=== PATIENT | female | born 1960 | race Caucasian/White ===

== ENCOUNTER 2019-10-27 08:22 | Inpatient (IN) | payer MEDICAID ==
[~2019-10-27] VITALS: Ht 165.1 cm; Wt 51.3 kg
[2019-10-27] MEDS ORDERED: SODIUM CHLORIDE 0.9% 1,000 ML IV ONE (08:41)
[2019-10-27] MEDS ORDERED: MORPHINE SULFATE 4 MG/ML CPJ (NOT FOR IM USE) IV STA (08:41)
[2019-10-27] MEDS ORDERED: ONDANSETRON HCL 4MG/2ML INJ IV STA (08:41)
[2019-10-27 09:35] LABS: CHLORIDE 104 mEq/L (98-107)
[2019-10-27 09:39] LABS: ETHANOL BLOOD < 10 mg/dL; INR 1.1; MEAN CORPUSCULAR HEMOGLOBIN 31.8 pg (28.0-32.0); MEAN CORPUSCULAR VOLUME 90.5 fL (81.0-99.0); MEAN PLATELET VOLUME 7.1 fl (7.4-10.4); PLATELET 459 x1000/uL (130-400); PROTHROMBIN TIME 11.9 sec (9.6-11.0); RED BLOOD CELL COUNT 1.99 mill/uL (4.2-5.4); RED CELL DISTRIBUTION WIDTH 13.5 % (11.6-14.6)
[2019-10-27 09:42] LABS: HEMOGLOBIN. 6.3 g/dL (12.0-16.0)
[2019-10-27] MEDS ORDERED: LORAZEPAM 2MG/ML CPJ IV ONE (09:45)
[2019-10-27] MEDS ORDERED: KCL 20MEQ/100ML PREMIX 100 ML IV ONE (10:15)
[2019-10-27 10:31] LABS: PLATELET ESTIMATE INCREASED
[2019-10-27 10:35] LABS: TOTAL IRON BINDING CAPACITY 198 ug/dL (250-450)
[2019-10-27 15:00] VITALS: BP 108/68
[2019-10-27] MEDS ORDERED: ALPR2TAB2 PO (15:32)
[2019-10-27] MEDS ORDERED: METH-611 PO (15:32)
[2019-10-27] MEDS ORDERED: LORA10TA7 MT (15:32)
[2019-10-27] MEDS ORDERED: DIPHENHYDRAMINE 50MG/ML VIAL IV PRN (18:45)
[2019-10-27] MEDS ORDERED: ONDANSETRON HCL 4MG/2ML INJ IV PRN (18:45)
[2019-10-27 21:26] LABS: BASOPHILS % 0.1 % (0.0-2.0); EOSINOPHILS % 0.1 % (0.0-5.0); LYMPHOCYTES % 8.8 % (20.0-50.0); MEAN CORPUSCULAR HEMOGLOBIN 31.1 pg (28.0-32.0); MEAN CORPUSCULAR VOLUME 89.1 fL (81.0-99.0); MEAN PLATELET VOLUME 7.6 fl (7.4-10.4); MONOCYTES % 6.7 % (2.0-8.0); NEUTROPHILS % 84.3 % (40.0-76.0); PLATELET 372 x1000/uL (130-400); RED BLOOD CELL COUNT 2.03 mill/uL (4.2-5.4); RED CELL DISTRIBUTION WIDTH 13.6 % (11.6-14.6)
[2019-10-27 21:29] LABS: HEMATOCRIT. 18.1 % (36.0-48.0); HEMOGLOBIN. 6.3 g/dL (12.0-16.0)
[2019-10-27 21:32] LABS: INR 1.1; PROTHROMBIN TIME 11.6 sec (9.6-11.0)
[2019-10-27] MEDS: LORAZEPAM 2MG/ML CPJ IV PRN (21:46)
[2019-10-27] MEDS: ACETAMINOPHEN 325MG TABLET PO PRN ×2 (21:46→23:31)
[2019-10-27] MEDS: ZOLPIDEM TARTRATE 5MG TABLET PO PRN (21:47)
[2019-10-27 22:40] VITALS: BP 126/80
[2019-10-27] MEDS: PANTOPRAZOLE SODIUM 40 MG/VIAL IV SCH (23:10)
[2019-10-28] VITALS (16 sets, daily range): BP systolic 87–120; BP diastolic 59–77
[2019-10-28] MEDS: SODIUM CHLORIDE 0.9% 1,000 ML IV SCH ×3 (02:52→15:30)
[2019-10-28] MEDS: ACETAMINOPHEN 325MG TABLET PO PRN ×2 (02:57→05:39)
[2019-10-28] MEDS: PANTOPRAZOLE SODIUM 40 MG/VIAL IV SCH ×2 (05:46→18:00)
[2019-10-28] MEDS: LORAZEPAM 2MG/ML CPJ IV PRN ×2 (05:48→18:21)
[2019-10-28 08:17] LABS: CHLORIDE 107 mEq/L (98-107); PHOSPHORUS 1.7 mg/dL (2.5-4.9)
[2019-10-28] MEDS ORDERED: POTASSIUM CHLORIDE 20MEQ TABLET SR PO ONE ×2 (09:15→10:15)
[2019-10-28] MEDS: POTASSIUM CHLORIDE 20MEQ TABLET SR PO SCH ×2 (09:43→11:12)
[2019-10-28] MEDS: METHADONE HCL 10MG TABLET PO SCH (11:37)
[2019-10-28] MEDS ORDERED: POTASSIUM PHOS,M-BASIC-D-BASIC 20 MMOL in DEXT 5% WATER 243.3333 ML IV NR (12:00)
[2019-10-28] MEDS ORDERED: DIATR MEGLU/DIATRIZOATE SOLN 30ML PO NR (14:45)
[2019-10-28] MEDS ORDERED: POTASSIUM CHLORIDE 20MEQ TABLET SR PO NR ×2 (16:15→21:00)
[2019-10-28 16:20] LABS: BASOPHILS % 0.4 % (0.0-2.0); EOSINOPHILS % 0.4 % (0.0-5.0); LYMPHOCYTES % 14.5 % (20.0-50.0); MEAN CORPUSCULAR HEMOGLOBIN 32.3 pg (28.0-32.0); MEAN CORPUSCULAR VOLUME 90.3 fL (81.0-99.0); MEAN PLATELET VOLUME 7.3 fl (7.4-10.4); MONOCYTES % 9.6 % (2.0-8.0); NEUTROPHILS % 75.1 % (40.0-76.0); PLATELET 300 x1000/uL (130-400); RED BLOOD CELL COUNT 1.52 mill/uL (4.2-5.4); RED CELL DISTRIBUTION WIDTH 14.1 % (11.6-14.6)
[2019-10-28 16:25] LABS: HEMATOCRIT. 13.7 % (36.0-48.0); HEMOGLOBIN. 4.9 g/dL (12.0-16.0)
[2019-10-28 18:20] LABS: FOLIC ACID (FOLATE) SERUM 13.3 ng/mL (>5.38)
[2019-10-28 21:27] LABS: CARCINO EMBRYONIC ANTIGEN 2.2 ng/ml
[2019-10-29] VITALS (19 sets, daily range): BP systolic 84–134; BP diastolic 49–93
[2019-10-29] MEDS: SODIUM CHLORIDE 0.9% 1,000 ML IV SCH ×2 (02:01→11:16)
[2019-10-29] MEDS: ACETAMINOPHEN 325MG TABLET PO PRN ×2 (03:55→20:42)
[2019-10-29] MEDS: LORAZEPAM 2MG/ML CPJ IV PRN ×2 (03:58→17:50)
[2019-10-29] MEDS: DIATR MEGLU/DIATRIZOATE SOLN 30ML PO NR ×2 (05:28→06:20)
[2019-10-29 06:03] LABS: BASOPHILS % 0.7 % (0.0-2.0); HEMATOCRIT. 22.4 % (36.0-48.0); HEMOGLOBIN. 7.7 g/dL (12.0-16.0); LYMPHOCYTES % 21.1 % (20.0-50.0); MEAN CORPUSCULAR HEMOGLOBIN 29.9 pg (28.0-32.0); MEAN CORPUSCULAR VOLUME 86.8 fL (81.0-99.0); MEAN PLATELET VOLUME 7.2 fl (7.4-10.4); MONOCYTES % 8.7 % (2.0-8.0); NEUTROPHILS % 67.5 % (40.0-76.0); PLATELET 284 x1000/uL (130-400); RED BLOOD CELL COUNT 2.58 mill/uL (4.2-5.4); RED CELL DISTRIBUTION WIDTH 15.6 % (11.6-14.6)
[2019-10-29] MEDS: PANTOPRAZOLE SODIUM 40 MG/VIAL IV SCH ×2 (06:21→17:50)
[2019-10-29 06:27] LABS: CHLORIDE 110 mEq/L (98-107)
[2019-10-29] MEDS: METHADONE HCL 10MG TABLET PO SCH (10:24)
[2019-10-29] MEDS ORDERED: IOHEXOL-300 100 ML BOTTLE ONE (11:14)
[2019-10-29 12:43] LABS: HEMOGLOBIN 5.3 g/dL (12.0-16.0)
[2019-10-29 12:44] LABS: HEMATOCRIT 15.2 % (36.0-48.0)
[2019-10-29] MEDS ORDERED: MIDAZOLAM HCL 5 MG/5 ML VIAL IV PRN (16:32)
[2019-10-29] MEDS ORDERED: MIDAZOLAM HCL 5 MG/5 ML VIAL ONE (16:38)
[2019-10-29] MEDS: SUCRALFATE 1G TABLET PO SCH (18:48)
[2019-10-29 21:24] LABS: HEMATOCRIT 27.2 % (36.0-48.0)
[2019-10-29 21:27] LABS: HEMOGLOBIN 9.2 g/dL (12.0-16.0)
[2019-10-30] VITALS (22 sets, daily range): BP systolic 99–144; BP diastolic 58–82
[2019-10-30] MEDS: SUCRALFATE 1G TABLET PO SCH ×4 (00:28→17:19)
[2019-10-30 00:55] LABS: HEMATOCRIT 24.1 % (36.0-48.0); HEMOGLOBIN 8.3 g/dL (12.0-16.0)
[2019-10-30] MEDS: SODIUM CHLORIDE 0.9% 1,000 ML IV SCH ×3 (04:00→16:46)
[2019-10-30] MEDS: ACETAMINOPHEN 325MG TABLET PO PRN ×3 (04:15→19:23)
[2019-10-30 05:21] LABS: HEMATOCRIT 24.3 % (36.0-48.0); HEMOGLOBIN 8.5 g/dL (12.0-16.0)
[2019-10-30] MEDS: PANTOPRAZOLE SODIUM 40 MG/VIAL IV SCH ×2 (06:23→17:19)
[2019-10-30] MEDS: FERROUS SULFATE 325MG TABLET PO SCH ×3 (08:28→17:20)
[2019-10-30] MEDS: METHADONE HCL 10MG TABLET PO SCH (09:13)
[2019-10-30] MEDS: ZOLPIDEM TARTRATE 5MG TABLET PO PRN (20:15)
[2019-10-31] VITALS (16 sets, daily range): BP systolic 116–150; BP diastolic 75–100
[2019-10-31] MEDS: ACETAMINOPHEN 325MG TABLET PO PRN ×2 (01:39→07:33)
[2019-10-31] MEDS: SUCRALFATE 1G TABLET PO SCH ×5 (01:40→23:38)
[2019-10-31] MEDS: SODIUM CHLORIDE 0.9% 1,000 ML IV SCH ×3 (01:40→23:36)
[2019-10-31] MEDS: PANTOPRAZOLE SODIUM 40 MG/VIAL IV SCH (05:11)
[2019-10-31] MEDS: LORAZEPAM 2MG/ML CPJ IV PRN (07:33)
[2019-10-31] MEDS: METHADONE HCL 10MG TABLET PO SCH (09:48)
[2019-10-31] MEDS: FERROUS SULFATE 325MG TABLET PO SCH ×3 (12:20→18:10)
[2019-10-31] MEDS: HYDROCODONE/ACETAMINOPHEN 5/325MG TABLET PO PRN ×3 (14:50→23:27)
[2019-10-31] MEDS: LORAZEPAM 1MG TABLET PO PRN (15:31)
[2019-10-31 15:55] LABS: BASOPHILS % 0.3 % (0.0-2.0); EOSINOPHILS % 0.6 % (0.0-5.0); LYMPHOCYTES % 15.4 % (20.0-50.0); MEAN CORPUSCULAR HEMOGLOBIN 31.2 pg (28.0-32.0); MEAN CORPUSCULAR VOLUME 93.8 fL (81.0-99.0); MEAN PLATELET VOLUME 7.1 fl (7.4-10.4); MONOCYTES % 6.1 % (2.0-8.0); NEUTROPHILS % 77.6 % (40.0-76.0); PLATELET 349 x1000/uL (130-400); RED BLOOD CELL COUNT 2.16 mill/uL (4.2-5.4)
[2019-10-31 16:01] LABS: CHLORIDE 107 mEq/L (98-107)
[2019-10-31 16:06] LABS: PHOSPHORUS 2.5 mg/dL (2.5-4.9)
[2019-10-31 16:36] LABS: HEMATOCRIT. 20.3 % (36.0-48.0); HEMOGLOBIN. 6.7 g/dL (12.0-16.0)
[2019-10-31] MEDS: PANTOPRAZOLE 40MG DR TABLET PO SCH (18:10)
[2019-11-01] VITALS (14 sets, daily range): BP systolic 128–178; BP diastolic 80–112
[2019-11-01] MEDS: LORAZEPAM 1MG TABLET PO PRN ×2 (02:24→12:47)
[2019-11-01] MEDS: HYDROCODONE/ACETAMINOPHEN 5/325MG TABLET PO PRN ×4 (03:33→20:24)
[2019-11-01] MEDS: PANTOPRAZOLE 40MG DR TABLET PO SCH ×2 (06:14→17:38)
[2019-11-01] MEDS: SUCRALFATE 1G TABLET PO SCH ×4 (06:15→23:04)
[2019-11-01] MEDS: FERROUS SULFATE 325MG TABLET PO SCH ×3 (09:32→17:38)
[2019-11-01] MEDS ORDERED: MORPHINE SULFATE 4 MG/ML CPJ (NOT FOR IM USE) IV NR (10:08)
[2019-11-01] MEDS: METHADONE HCL 10MG TABLET PO SCH (10:12)
[2019-11-01] MEDS: SODIUM CHLORIDE 0.9% 1,000 ML IV SCH ×2 (12:23→19:30)
[2019-11-01] MEDS: CLONIDINE 0.1MG TABLET PO PRN (15:19)
[2019-11-01] MEDS ORDERED: MAGNESIUM 2 G PREMIX 50 ML IV NR (15:30)
[2019-11-01] MEDS: MORPHINE SULFATE 2 MG/ML CPJ (NOT FOR IM USE) IV PRN ×2 (18:43→23:04)
[2019-11-01 19:01] LABS: CHLORIDE 103 mEq/L (98-107)
[2019-11-01 19:04] LABS: BASOPHILS % 0.2 % (0.0-2.0); EOSINOPHILS % 0.6 % (0.0-5.0); HEMATOCRIT. 25.9 % (36.0-48.0); HEMOGLOBIN. 9.1 g/dL (12.0-16.0); LYMPHOCYTES % 12.2 % (20.0-50.0); MEAN CORPUSCULAR HEMOGLOBIN 31.7 pg (28.0-32.0); MEAN CORPUSCULAR VOLUME 90.3 fL (81.0-99.0); MEAN PLATELET VOLUME 6.7 fl (7.4-10.4); MONOCYTES % 6.8 % (2.0-8.0); NEUTROPHILS % 80.2 % (40.0-76.0); PLATELET 248 x1000/uL (130-400); RED BLOOD CELL COUNT 2.87 mill/uL (4.2-5.4); RED CELL DISTRIBUTION WIDTH 14.8 % (11.6-14.6)
[2019-11-02] VITALS (8 sets, daily range): BP systolic 116–166; BP diastolic 86–106
[2019-11-02] MEDS: HYDROCODONE/ACETAMINOPHEN 5/325MG TABLET PO PRN ×3 (00:29→11:11)
[2019-11-02] MEDS ORDERED: POTASSIUM CHLORIDE 20MEQ TABLET SR PO NR (00:30)
[2019-11-02] MEDS: LORAZEPAM 1MG TABLET PO PRN (02:04)
[2019-11-02] MEDS: MORPHINE SULFATE 2 MG/ML CPJ (NOT FOR IM USE) IV PRN ×2 (03:13→07:41)
[2019-11-02] MEDS: CLONIDINE 0.1MG TABLET PO PRN (04:37)
[2019-11-02] MEDS: SODIUM CHLORIDE 0.9% 1,000 ML IV SCH (04:40)
[2019-11-02] MEDS: PANTOPRAZOLE 40MG DR TABLET PO SCH ×2 (06:57→17:48)
[2019-11-02] MEDS: FERROUS SULFATE 325MG TABLET PO SCH ×3 (06:57→17:48)
[2019-11-02] MEDS: SUCRALFATE 1G TABLET PO SCH ×3 (06:57→17:48)
[2019-11-02] MEDS: METHADONE HCL 10MG TABLET PO SCH (08:57)
[2019-11-02] MEDS ORDERED: MORPHINE SULFATE 4 MG/ML CPJ (NOT FOR IM USE) IV PRN (14:15)
[2019-11-02] MEDS: OXYCODONE HCL/ACETAMINOPHEN 5/325MG TABLET PO PRN ×2 (14:41→21:18)
[2019-11-02] MEDS: ALPRAZOLAM 0.5 MG TABLET PO SCH ×2 (14:41→21:12)
[2019-11-02] MEDS: ACETAMINOPHEN 325MG TABLET PO PRN ×2 (18:26→23:15)
[2019-11-02] MEDS: NIFEDIPINE XL 30MG TAB PO SCH (21:12)
[2019-11-02] MEDS: METOPROLOL TARTRATE 25MG TABLET PO SCH (21:12)
[2019-11-03] VITALS (12 sets, daily range): BP systolic 102–158; BP diastolic 59–110
[2019-11-03] MEDS: SUCRALFATE 1G TABLET PO SCH ×4 (00:11→18:01)
[2019-11-03] MEDS: LORAZEPAM 1MG TABLET PO PRN ×3 (02:56→19:10)
[2019-11-03] MEDS: OXYCODONE HCL/ACETAMINOPHEN 5/325MG TABLET PO PRN ×4 (03:01→22:19)
[2019-11-03] MEDS: ALPRAZOLAM 0.5 MG TABLET PO SCH ×3 (05:55→22:10)
[2019-11-03] MEDS: ACETAMINOPHEN 325MG TABLET PO PRN ×4 (05:55→20:47)
[2019-11-03] MEDS: PANTOPRAZOLE 40MG DR TABLET PO SCH ×2 (05:55→18:01)
[2019-11-03 06:56] LABS: CHLORIDE 100 mEq/L (98-107)
[2019-11-03] MEDS: METOPROLOL TARTRATE 25MG TABLET PO SCH ×2 (08:27→20:44)
[2019-11-03] MEDS: NIFEDIPINE XL 30MG TAB PO SCH ×2 (08:28→20:45)
[2019-11-03] MEDS: FERROUS SULFATE 325MG TABLET PO SCH ×3 (08:28→16:19)
[2019-11-03] MEDS ORDERED: METHADONE HCL 5MG TABLET PO SCH (09:00)
[2019-11-03] MEDS ORDERED: METHADONE HCL 10MG TABLET PO SCH (09:00)
[2019-11-03] MEDS ORDERED: POTASSIUM CHLORIDE 20MEQ TABLET SR PO SCH (09:30)
[2019-11-03 09:59] LABS: PHOSPHORUS 2.4 mg/dL (2.5-4.9)
[2019-11-03] MEDS: LOSARTAN POTASSIUM 50 MG TABLET PO SCH (11:05)
[2019-11-03] MEDS ORDERED: POTASSIUM PHOS,M-BASIC-D-BASIC 20 MMOL in DEXT 5% WATER 250 ML IV SCH (16:00)
[2019-11-03] MEDS ORDERED: MAGNESIUM 4 G PREMIX 100 ML IV SCH (16:00)
[2019-11-03 17:32] LABS: BASOPHILS % 0.3 % (0.0-2.0); HEMATOCRIT. 26.5 % (36.0-48.0); HEMOGLOBIN. 9.3 g/dL (12.0-16.0); LYMPHOCYTES % 13.1 % (20.0-50.0); MEAN CORPUSCULAR HEMOGLOBIN 32.3 pg (28.0-32.0); MEAN CORPUSCULAR VOLUME 92.3 fL (81.0-99.0); MEAN PLATELET VOLUME 6.9 fl (7.4-10.4); MONOCYTES % 8.4 % (2.0-8.0); NEUTROPHILS % 77.2 % (40.0-76.0); PLATELET 295 x1000/uL (130-400); RED BLOOD CELL COUNT 2.87 mill/uL (4.2-5.4); RED CELL DISTRIBUTION WIDTH 15.7 % (11.6-14.6)
[2019-11-03] MEDS ORDERED: TRAZODONE HCL 50MG TABLET PO SCH (21:00)
[2019-11-04] VITALS: BP 121/94
[2019-11-04] MEDS: ACETAMINOPHEN 325MG TABLET PO PRN ×2 (00:46→07:47)
[2019-11-04] MEDS: SUCRALFATE 1G TABLET PO SCH ×2 (01:15→06:05)
[2019-11-04 02:00] VITALS: BP 124/85
[2019-11-04] MEDS: LORAZEPAM 1MG TABLET PO PRN (03:26)
[2019-11-04 04:00] VITALS: BP 120/87
[2019-11-04] MEDS: OXYCODONE HCL/ACETAMINOPHEN 5/325MG TABLET PO PRN (04:32)
[2019-11-04 06:00] VITALS: BP 140/97
[2019-11-04] MEDS: PANTOPRAZOLE 40MG DR TABLET PO SCH (06:05)
[2019-11-04] MEDS: ALPRAZOLAM 0.5 MG TABLET PO SCH (06:05)
[2019-11-04] MEDS: FERROUS SULFATE 325MG TABLET PO SCH (07:43)
[2019-11-04] MEDS: METOPROLOL TARTRATE 25MG TABLET PO SCH (07:47)
[2019-11-04] MEDS: LOSARTAN POTASSIUM 50 MG TABLET PO SCH (07:48)
[2019-11-04] MEDS: NIFEDIPINE XL 30MG TAB PO SCH (07:48)
[2019-11-04 08:00] VITALS: BP_SYST 113; BP_SYST 116; BP_DIAS 73; BP_DIAS 74
[2019-11-04] MEDS ORDERED: METHADONE HCL 10MG TABLET PO SCH (09:00)
[2019-11-04 10:00] VITALS: BP 115/55
== END 2019-11-04 10:59 | disposition hospice, inpatient (51) | DRG 663 ==
LOC: ER 08:29 → EDBD 10:14 → 8WST 10:14 → EDBEDREQ 10:20 → ENRESERV 11:07 → CVICU 10-29 17:38 → 3WST 10-30 22:22
PROVIDERS: ADMIT Internal Medicine; ATTEND Internal Medicine
PROC: 30233N1 Transfusion of Nonautologous Red Blood Cells into Peripheral Vein, Percutaneous Approach (ICD-10-PCS; principal; 2019-10-29)
PROC: 0DB68ZX Excision of Stomach, Via Natural or Artificial Opening Endoscopic, Diagnostic (ICD-10-PCS; 2019-10-29)
DX: D50.0 Iron deficiency anemia secondary to blood loss (chronic) (principal); E43 Unspecified severe protein-calorie malnutrition; K44.9 Diaphragmatic hernia without obstruction or gangrene; K26.4 Chronic or unspecified duodenal ulcer with hemorrhage; K29.70 Gastritis, unspecified, without bleeding; N17.9 Acute kidney failure, unspecified; E87.6 Hypokalemia; D72.829 Elevated white blood cell count, unspecified; E86.0 Dehydration; I10 Essential (primary) hypertension; S52.501A Unspecified fracture of the lower end of right radius, initial encounter for closed fracture; C25.9 Malignant neoplasm of pancreas, unspecified; E83.42 Hypomagnesemia; E83.39 Other disorders of phosphorus metabolism; R73.9 Hyperglycemia, unspecified; E88.09 Other disorders of plasma-protein metabolism, not elsewhere classified; Z20.828 Contact with and (suspected) exposure to other viral communicable diseases; X58.XXXA Exposure to other specified factors, initial encounter; F32.9 Major depressive disorder, single episode, unspecified; Z51.5 Encounter for palliative care; Z85.9 Personal history of malignant neoplasm, unspecified; Z59.0 Homelessness; Z68.1 Body mass index [BMI] 19.9 or less, adult; Y93.89 Activity, other specified; Y92.89 Other specified places as the place of occurrence of the external cause; Y99.8 Other external cause status; Z87.11 Personal history of peptic ulcer disease; Z90.49 Acquired absence of other specified parts of digestive tract
CPT/HCPCS: 36415; 71045; 71260; 73100; 74177; 80048; 80053; 80320; 82105; 82270; 82378; 82607; 82728; 82746; 83036; 83540; 83550; 83735; 84100; 84484; 85014; 85018; 85025; 85044; 85384; 86301; 86850; 86900; 86920; 88305; 88313; 93005; 97116; 97162; 97164; 97530; 99285; C9113; J2060; J2250; J2270; J2405; J3475; J3480; J3490; J7030; J7060; P9016; Q9963; Q9967; G0480; U0003-CS